=== PATIENT | male | born 1995 | race Caucasian/White ===

== ENCOUNTER 2023-06-15 16:22 | Emergency (ER) | payer OTHER, SELFPAY ==
[2023-06-15 18:01] VITALS: BP 131/74; PULSE 68; RESP 16; TEMP 36.6; O2SAT 100; BMI 23.6
--- NOTE | 2023-06-15 18:04 | ED_ITS ---
HPI - General Adult General Chief complaint: Wound/Laceration Stated complaint: Laceration left thumb Time Seen by Provider: 06/15/23 19:54 Source: patient, RN notes reviewed and old records reviewed Mode of arrival: ambulatory History of Present Illness HPI narrative: 28-year-old male with no significant past medical history presenting to the ED complaining of laceration to left thumb s/p slicing cheese with serrated knife [facility]. Denies injury to the area, numbness/tingling, weakness. Tetanus up-to-date Onset (ago): hour(s) Related Data Allergies Allergy/AdvReac Type Severity Reaction Status Date / Time No Known Allergies Allergy Verified 06/15/23 18:00 Review of Systems Review of Systems: Constitutional: No Fever, No Chills ENT/Mouth: No Ear Pain, No Nasal Congestion, No sore throat, No Rhinorrhea, No Swallowing Difficulty Cardiovascular: No Chest Pain, No SOB Respiratory: No Cough Gastrointestinal: No Nausea, No Vomiting, No Abdominal pain Musculoskeletal: No joint pain, No Myalgias, No Joint Swelling Skin: +laceration, No rash Neuro: No Weakness, No Numbness, No Paresthesias Yes all other systems are reviewed and are negative Constitutional: Constitutional: Reports as per [facility] Past Medical History Attestation statement: The following information was validated with the patient. Source: old records reviewed Social History Social History Smoked in Last 30 Days: No Use of substances other than those prescribed or required for medical reasons: No Advance Directives: No Advance Directives Information Provided: No Physical Exam ED Vital Signs: Vital Signs - 24 hr 06/15/23 18:01 Temperature 97.8 F Pulse Rate 68 Respiratory Rate 16 Blood Pressure 131/74 Pulse Oximetry 100 Oxygen Delivery Method Room Air BMI result Body Mass Index 23.6 Const General: cooperative, healthy appearing and no acute distress Orientation/consciousness: patient oriented x3 Limitations: no limitations HENMT Head: Yes normal to inspection and Yes atraumatic Ears: hearing grossly normal bilaterally General nose exam: Normal external nose present Face and sinus: Yes normal facial exam Eyes General: appearance normal, both eyes and all related structures EOM: EOMs intact bilaterally Neck Neck: Yes normal visual inspection and Yes no meningeal signs Resp Effort & Inspection: normal respiratory effort and no respiratory distress Cardio Rate: regular rate Skin Other: + 2.5 cm laceration noted to left thumb palmar aspect. Full range of motion intact. Neurovascularly intact. Sensation intact to light touch Rashes: no rashes Neuro General: patient oriented x3, tone normal and no meningeal signs Cranial nerves: Yes CN's II-XII intact bilaterally Gait exam (Neuro): Normal gait present Extrem General: Yes normal to inspection Course Course Course Narrative: This is an RME: Additional HPI, ROS, PE not included below will be deferred to primary provider. This is a 28-year-old male presenting to the ER with complaints of left thumb laceration. Partial-thickness laceration noted to the distal tip of his left thumb, no active bleeding, may benefit from sutures verses Steri-Strips and skin glue. Patient believes that Tetanus is up-to-date. Plan: Further ER evaluation needed. -sutures performed by CARLENE Results discussed with patient including worrisome signs and symptoms and strict return precautions, and when to return to the emergency department. They verbalized understanding and feel safe for discharge at this time. Medications Administered Discontinued Medications Generic Name Dose Route Start Last Admin Trade Name Freq PRN Reason Stop Dose Admin Lidocaine HCl 5 ml 06/15/23 19:53 06/15/23 20:04 Lidocaine Hcl 1 % Mpf 5 Ml Vial INFILTRATI 06/15/23 19:54 5 ml ONCE ONE Administration Procedures Laceration Laceration 1: Site: hand Side (If applicable): left Size (cm): 2.5 Description: linear Depth: simple, single layer Local Anesthetic: lidocaine 1% and other anesthetic (Digital block) Amount of anesthesia used (mL): 3.5 Pre-repair: wound explored Skin layer closed with: nylon Size (cm): 4-0 Number of sutures: 7 Technique: simple, interrupted Medical Decision Making Medical Decision Making MDM Narrative: 28-year-old male with no significant past medical history presenting to the ED complaining of laceration to left thumb s/p slicing cheese with serrated knife [facility]. On exam vital signs stable, NAD, nontoxic appearing, laceration noted as above. Will need suture repair. Tetanus is up-to-date. Low suspicion for tendon/ligamental injury or septic joint. Unlikely fracture Plan: Repair wound Please refer to course for remaining clinical decision making, interpretation of labs/imaging results, and discussions with consultants and/or family members. Differential Diagnosis Differential Diagnoses: The differential diagnosis associated with the presentation includes As above Lab Data MDM Lab Attestation statement: I reviewed the patient's lab results. External Record Review External record reviewed: Inpatient record, Office record, Outpatient record, Prior outpatient labs, Prior outpatient radiology, Primary care record and Outside ED record Tests considered The following testing was considered but not selected: As above Prescription Management I considered prescription management with: Pain Medication and Antibiotic Discharge Plan Discharge Clinical Impression: Laceration Patient Disposition: Home, Self-Care Instructions: Laceration (DC) Additional Instructions: Your wounds were repaired today in the emergency department. Keep dry and clean. You need to return to any emergency department, urgent care, or your PCPs office in 7-10 days for suture removal Apply bacitracin and or Neosporin daily Once sutures are removed apply anti scar cream like Mederma If area begins look infected, is red, there is drainage, streaking, or you have fever please return to the emergency department Referrals: Physician,Wendi J [Primary Care Provider] - 1 week (For suture removal)
--- NOTE | 2023-06-15 19:52 | PC.NURSE ---
a&ox3, vss and up to date at this time. bleeding controlled. pt c/o no pain at this time. denies numbness/tingling. cms intact. respirations even and unlabored.
[2023-06-15] MEDS: Lidocaine HCl 1 % MPF 5 ML VIAL INFILTRATI (20:04)
--- NOTE | 2023-06-15 20:04 | PC.NURSE ---
medication scanned/placed bedside for provider to use at this time.
--- NOTE | 2023-06-15 20:39 | PC.NURSE ---
provider bedside applying sutures to laceration. pt tolerating procedure well. respirations remain even and unlabored.
== END 2023-06-15 21:32 | disposition home or self-care (01) ==
PROVIDERS: Emergency Provider Emergency Medicine
DX: S61.012A Laceration without foreign body of left thumb without damage to nail, initial encounter (principal); M79.642 Pain in left hand; W26.9XXA Contact with unspecified sharp object(s), initial encounter; Y93.9 Activity, unspecified; Y92.9 Unspecified place or not applicable; Y99.9 Unspecified external cause status
CPT/HCPCS: 12001; 99284